=== PATIENT | male | born 1965 | race Caucasian/White ===

== ENCOUNTER 2019-01-08 18:01 | Inpatient (IN) | payer MEDICARE, OTHER ==
[~2019-01-08] VITALS: Ht 170.1 cm; Wt 108.0 kg
--- NOTE | ~2019-01-08 | PR ---
[place], [place] PROGRESS NOTE NAME: FRANSISCA KO UNIT #: [id number] ROOM: 310 DOCTOR: KAY CHÁVEZ CNP BIRTHDATE: [birth year] DOS: CHIEF COMPLAINT: "Oh, I am here because I was a little upset about smoke break, but sober other people." SUMMARY OF THE VISIT: The patient was interviewed as he sats in the dining room. He did engage readily in conversation with me. He reports that he slept well last night. He reports that his appetite is good. The patient reports that his mood has been good. He denies feeling agitated, anxious, or irritable. He does report to me that he was upset about not being able to smoke at the facility where he resides due to a smoke break being canceled; however, he reports he was not the only one that was upset. Staff reports that the patient slept well. He has been taking medications as prescribed. He has exhibited no behaviors. MENTAL STATUS EXAMINATION: The patient is alert and oriented to person, place and time. He did have some memory gap regarding his location. He was pleasant and cooperative with me. No mely or hypomania noted. No delusion or paranoia noted. No psychotic symptoms noted. No auditory or visual hallucinations noted. The patient's mood was calm. Affect was appropriate. PLAN: I will continue the patient's medications as prescribed. The patient seems to be tolerating medications without any side effects. Medication appears to be effective. Continue to encourage the patient to participate in individual and jordan milieu activity. Continue fall and safety precautions. The plan is to return the patient to the least restrictive environment once he is psychiatrically stable. Kay Chávez CNP CM:PNTRANS [phone] KAY CHÁVEZ CNP 01/10/19 1338 interface
--- NOTE | ~2019-01-08 | PR ---
[place], [place] PROGRESS NOTE NAME: FRANSISCA KO UNIT #: [id number] ROOM: 310 DOCTOR: DARREL CAMACHO MD BIRTHDATE: [birth year] DOS: 01/14/2019 CHIEF COMPLAINT: "I don't think I am ready to go home yet." SUMMARY OF THE VISIT: The patient was interviewed as he was eating his breakfast. He engaged readily in conversation. He reports he still does not feel like he is ready to return back to [facility] stating that he still is having some GI issues and still having some residual depression. He does note, however, he is sleeping better and eating better and overall does seem to be strongly trending towards euthymia. Outwardly, I see no side effects from the medicines themselves. MENTAL STATUS: He is alert and oriented to person, place, and approximate to time. Mood does seem to be strongly trending towards euthymia, but depression still persists. There is still some anxiety as well. There is no hypomania or mely. There is no gross psychosis. Short-term memory has some gaps, but otherwise, he is intact. PLAN: I will go ahead and maximize out the dose of Cymbalta bringing it to 60 mg b.i.d. in order to impact positively on depression and anxiety. We will monitor for risks and benefits. We will continue to engage in individual and jordan milieu activities, returning then to the least restrictive environment when psychiatrically stable. DARREL CAMACHO MD CM:PNTRANS [phone] DARREL CAMACHO MD 01/14/19 2345 interface
--- NOTE | ~2019-01-08 | PN ---
[place], [place] PROGRESS NOTE NAME: FRANSISCA KO UNIT #: [id number] ROOM: 310 DOCTOR: DARREL CAMACHO MD BIRTHDATE: [birth year] DATE: 01/15/19 ADDENDUM: Resident note reviewed. Agree with observations, recommendations, and overall treatment plan. DARREL CAMACHO MD CM:PNTRANS [id number] DARREL CAMACHO MD 02/03/19 1331 LUCI HINOJOSA MIS.LLR
--- NOTE | ~2019-01-08 | DS ---
[place], [place] DISCHARGE SUMMARY NAME: FRANSISCA KO UNIT #: [id number] ROOM: 310 DOCTOR: DARREL CAMACHO MD BIRTHDATE: [birth year] DOS: 01/18/2019 CHIEF COMPLAINT: "I slept just fine." HISTORY OF PRESENT ILLNESS: This is a 53-year-old white male who was admitted from [facility]. The patient is referred here because he has been very angry and irritable and is having outbursts at the facility where he has been swearing profanities. He has also been sexually inappropriate with staff. He has been attempting to be very physically aggressive and has been resistive to care. Because of these behaviors, it was felt that an inpatient evaluation and treatment process was warranted. He is admitted now to rule out organic factors and to stabilize on medication. SUMMARY OF HOSPITAL COURSE: The patient was admitted to the unit where his vitamin D was found to be low, so he was given vitamin D 50,000 International Units weekly. He was already on a low dose of Risperdal, but this dose was increased from 0.5 mg to 1 mg twice daily. Additionally, he was started on Cymbalta 30 mg at bedtime and during the course of his stay, the Cymbalta was increased to its maximum dose of 60 mg b.i.d. This seemed to impact positively on him and his mood lifted and he became much more pleasant. There was a significant amount of anxiety and pain noted and the Cymbalta impacted positively on both of these. Anxiety still persisted to the point where hydroxyzine 25 mg 3 times daily was added with positive results. He did note that this made him feel much more calm during the day and less anxious and he was able to engage more readily in group activities and even individual activities without his mind wandering into negative places. He tolerated the medication regimen well and during his latter part of his stay, he did not exhibit any agitation or aggression. There was no mood lability and he was compliant with all aspects of care. The patient was discharged then back to [facility]. MENTAL STATUS AT DISCHARGE: The patient is alert and oriented to person, place and fairly much to time. Mood is euthymic. Affect is appropriate. There is no mely, hypomania or psychosis. Short, intermediate, and long-term memories are intact. DIAGNOSES AT DISCHARGE: Major depression, recurrent; intermittent explosive disorder. PLAN: The patient is returning home. His prescriptions have been e-scribed to [facility]. At the time of discharge, he was medically and psychiatrically stable. [place], [place] DISCHARGE SUMMARY NAME: FRANSISCA KO UNIT #: [id number] ROOM: 310 DOCTOR: DARREL CAMACHO MD BIRTHDATE: [birth year] DARREL CAMACHO MD CM:DISCHARG [id number] DARREL CAMACHO MD 01/18/19 1108 interface
--- NOTE | ~2019-01-08 | WRIGHTHP ---
[place], [place] PATIENT HISTORY AND PHYSICAL EXAM NAME: [id number] UNIT #: [id number] ROOM: 310 DOCTOR: KAY CHÁVEZ CNP BIRTHDATE: [birth year] DOS: 01/09/2019 INITIAL PSYCHIATRIC EVALUATION CHIEF COMPLAINT: "I slept just fine." HISTORY OF PRESENT ILLNESS: This is a 53-year-old white male who is from the [facility] in [place]. The patient was referred due to the fact that he was becoming easily angered and having outbursts at the facility, swearing because a smoke break was canceled and he is also being sexually inappropriate to staff. The staff at the facility reports that the patient's symptoms have been continuing to get progressively worse in order that he was unable to be easily redirected. It was decided to admit that the patient needed to be admitted to the Behavioral Health Unit to rule out further organic factors and to attempt to stabilize the patient on his medication. We will also encourage the patient to engage in individual and jordan milieu activity and return to the least restrictive environment once he is considered psychiatrically stable. PAST MEDICAL HISTORY: Remarkable for degenerative joint disease, hypothyroidism, bronchial asthma, hypercholesterolemia, hypertension, claustrophobia, schizophrenia, psychosis, intellectual disability disorder, obesity and obstructive sleep apnea. SOCIAL HISTORY: The patient has a history of tobacco abuse. He also has a history of alcohol and substance abuse, but no current alcohol or substance use. STRENGTH: The patient's strength, he is ambulatory and does have a support system. WEAKNESSES: The patient has poor coping skills. MENTAL STATUS: The patient is alert and oriented x 3. The patient is very irritable. No overt mely or hypomania noted. No delusions or paranoia noted. No psychotic symptoms noted. No auditory or visual hallucinations noted. The patient's mood seems very depressed. He minimally will verbalize with me providing just one word answers, mainly yes or no. The patient's affect is congruent with mood. Eye contact is poor. The patient closes his eyes while I tried to interview him. DIAGNOSES: Intermittent explosive disorder and major depressive disorder. PLAN: The patient's vitamin D level was low, so we will start the patient on vitamin D 50,000 International Units weekly. We will increase the patient's Risperdal in the morning from 0.5-1 mg. We will add Cymbalta. We will start Cymbalta 30 mg at bedtime. We will monitor the patient and we will monitor for side effects. We will encourage the patient to participate in jordan milieu activity. Implement own safety precautions. Plan is to return the patient to the least restrictive environment once he is considered psychiatrically stable. [place], [place] PATIENT HISTORY AND PHYSICAL EXAM NAME: FRANSISCA KO UNIT #: [id number] ROOM: 310 DOCTOR: KAY CHÁVEZ CNP BIRTHDATE: [birth year] Kay Chávez CNP CM:HISPHYS:PATIENT HISTORY AND PHYSICAL EXAMINATION [phone] KAY CHÁVEZ CNP 01/09/19 1025 interface
--- NOTE | ~2019-01-08 | PR ---
[place], [place] PROGRESS NOTE NAME: FRANSISCA KO UNIT #: [id number] ROOM: 310 DOCTOR: DARREL CAMACHO MD BIRTHDATE: [birth year] DOS: 01/11/2019 CHIEF COMPLAINT: "I think I am feeling okay." SUMMARY OF THE VISIT: The patient was interviewed as he was finishing his breakfast in the dining area. He responded to me appropriately and engaged readily in conversation. He reports that he is here because of smoking issues at [facility]. This has been an ongoing problem for him now for months and he continues to have many temper tantrums when he cannot smoke. He reports that he has been told by [facility] that he will no longer be allowed to smoke, it is unclear to me whether this is reality based in them setting limits just on him or if the facility itself is becoming nonsmoking. In any case, he reports that he is sleeping well, eating well and notes no side effects from the medicines themselves. MENTAL STATUS: He is alert and oriented. Mood does seem to be fairly euthymic. Affect appropriate. There is no mely, hypomania or gross psychosis. Short, intermediate, and long-term memory are roughly intact. PLAN: At the present time, I have discussed the case with nursing home social worker who will reach out to [facility] to get more information and it to determine the least restrictive environment to which the patient could return to when psychiatrically stable. We will engage in individual and jordan milieu activity, returning to the least restrictive environment when stable. DARREL CAMACHO MD CM:PNTRANS [phone] DARREL CAMACHO MD 01/11/19 1118 interface
--- NOTE | ~2019-01-08 | PR ---
[place], [place] PROGRESS NOTE NAME: FRANSISCA KO UNIT #: [id number] ROOM: 310 DOCTOR: DARREL CAMACHO MD BIRTHDATE: [birth year] DOS: 01/13/2019 INTERVAL NOTE CHIEF COMPLAINT: "I am constipated and I didn't sleep well last night." SUMMARY OF THE VISIT: The patient was interviewed as he was finishing his breakfast. He engaged readily in conversation, complaining of poor sleep. Some of this he relates to being constipated and not moving his bowels. He denies that it is causing him pain, but is causing him some discomfort. Otherwise, he has been fairly compliant and has been tolerating his medicines well without apparent side effects. MENTAL STATUS: He is alert and oriented to person, place, very approximate to time. Mood does seem to be strongly trending towards euthymia. Affect is much more appropriate. There is no mely or hypomania noted. Memory for the most part is intact. PLAN: His Trileptal level is barely therapeutic at 11. I will increase his Trileptal dose, then from 300 mg b.i.d. to 300 mg t.i.d. I will also start him on sucralfate one tablet at bedtime to help with some of his GI issues. We will engage in individual and jordan milieu activities, returning to the least restrictive environment when psychiatrically stable. DARREL CAMACHO MD CM:PNTRANS [id number] DRAREL CAMACHO MD 01/14/19 0045 interface
[2019-01-08] MEDS ORDERED: PEPCID20 MG PO (18:07)
[2019-01-08] MEDS ORDERED: ARNUITY ELLIPT50 MCG INH (18:09)
[2019-01-08] MEDS ORDERED: TOPROL XL25 MG PO (18:10)
[2019-01-08] MEDS ORDERED: TRILEPTAL300 MG PO (18:11)
[2019-01-08] MEDS ORDERED: OYSTER SHELL 51 EACH PO (18:12)
[2019-01-08] MEDS ORDERED: KLONOPIN0.5 MG PO (18:13)
[2019-01-08] MEDS ORDERED: CYMBALTA60 MG PO (18:14)
[2019-01-08] MEDS ORDERED: LYRICA200 M1 PO (18:24)
[2019-01-08] MEDS ORDERED: TAZORAC T (18:26)
[2019-01-08] MEDS ORDERED: CLONIDINE HCL0.1 MG PO (18:27)
[2019-01-08] MEDS ORDERED: APRESOLINE25 MG PO (18:29)
[2019-01-08] MEDS ORDERED: TYLENOL WITH C1 EACH PO (18:30)
[2019-01-08] MEDS ORDERED: Ipratropium Brom3 ML INH (18:30)
--- NOTE | 2019-01-08 20:34 | NUR ---
WAIANTONIOFRANSISCA Perez a 53 year old M admitted via ambulance from the OTHER as a voluntary admission. Arrived on unit at 2033. ALLERGIES: NKA. Vital signs are: 97.8-80-20 150/76. The CLIENTS POA VERBALLY AGREED TO : Authorization For The Release of Medical Information, Clothing List, Consent to Voluntary Admission and Hospitalization, Consent and Release Forms/Receipt of Rights, Acknowledgement of Advance Directive Information, Behavioral Health Consent Form, and Informed Consent of Medications. Admitted under the services of Dr. JANICE MCPHERSONDARREL. A search was conducted and hazardous articles were removed. Client was oriented to the unit. RIYA MAE
--- NOTE | 2019-01-08 22:00 | NUR ---
DR. IBARRA ON UNIT TO SEE PT
[2019-01-08 23:24] VITALS: BP 150/76
[2019-01-08 23:27] VITALS: BP 150/76
--- NOTE | 2019-01-09 00:23 | NUR ---
PT HYPERTALKATIVE WITH THIS NURSE ON ADMISSION, ATTEMPTING TO GIVE MUCH INFORMATION POSSIBLE, PLEASANT COOPERATIVE. PT HISTORY VARIED DURING CONVERSATION IN REFERENCE TO SMOKING PATTERN, DRUG USE, ACCIDENTS, AND GENERAL HEALTH HISTORY. PT DENIES SI/HI OR DELUSIONS STATED HE HAS ANGER ISSUES WHICH ARE FROM THE "GENES ON FATHERS SIDE". ENCOURAGE PT TO TALK WITH STAFF AND TO LET STAFF KNOW WHEN HE IS FEELING FRUSTRATED. PT IS RESTING IN BED WITH O2 3 L VIA NC. CONITNUE TO MONITOR FOR 15 MIN CHECKS
--- NOTE | 2019-01-09 05:45 | NUR ---
PT SLEPT 6+ HOURS THIS SHIFT, RESTLESS AT TIMES BUT DID NOT ATTEMPT TO GET OUT OF BED
[2019-01-09 06:46] LABS: BASO % 0.3 % (0.0-1.0); EOS # 0.2 10*3/uL (0.0-0.4); EOS % 1.5 % (1.0-4.0); HEMOGLOBIN 14.7 g/dl (14.0-18.0); LYMPH # 1.8 10*3/uL (1.3-4.4); LYMPH % 17.1 % (27.0-41.0); MEAN CELL VOLUME 99.8 fl (80.0-94.0); MEAN CORPUSCULAR HGB 31.9 pg (27.0-31.0); MEAN PLATELET VOLUME 10.8 fl (9.6-12.3); MONO # 0.8 10*3/uL (0.1-1.0); NEUT # 7.5 10*3/uL (2.3-7.9); NEUT % 72.5 % (47.0-73.0); PLATELET COUNT AUTOMATED 119 10*3/uL (130-400); RED BLOOD COUNT 4.61 10*6/uL (4.50-5.90); RED CELL DISTRI WIDTH 12.6 % (0-14.5); WHITE BLOOD COUNT 10.3 10*3/uL (4.8-10.8)
[2019-01-09 07:03] LABS: ALBUMIN 3.5 gm/dl (3.1-4.5); BUN 18 mg/dl (7-24); CHLORIDE 99 mmol/L (98-107); CHOLESTEROL 244 mg/dL (<200); CREATININE 0.94 mg/dL (0.70-1.30); POTASSIUM 4.4 mmol/L (3.5-5.1); SGOT/AST 27 IU/L (3-35); SGPT/ALT 36 U/L (12-78); SODIUM 139 mmol/L (136-145); TOTAL PROTEIN 8.3 gm/dL (6.4-8.2); TRIGLYCERIDES 200 mg/dl (<150); VLDL CHOLESTEROL 40 mg/dL (6-40)
[2019-01-09 07:12] LABS: ALKALINE PHOSPHATASE 153 U/L (45-117); HDL CHOLESTEROL 47 mg/dl (40-60); LDL CHOLESTEROL 157 mg/dL (9-159)
[2019-01-09 07:50] LABS: VITAMIN D, 25-HYDROXY 28.2 ng/mL (30-100)
[2019-01-09 08:00] VITALS: BP 151/82
--- NOTE | 2019-01-09 08:01 | NUR ---
JEFFRY VILLANUEVA ON UNIT TO ASSESS PT.
--- NOTE | 2019-01-09 08:03 | NUR ---
SHAWN KIRK ON UNIT TO ASSESS PT.
--- NOTE | 2019-01-09 08:15 | NUR ---
PT REFUSED BREAKFAST AFTER MULTIPLE ATTEMPTS.
--- NOTE | 2019-01-09 13:21 | NUR ---
P: DEPRESSED MOOD I: 1:1 PROVIDED FOR THERAPEUTIC COMMUNICATION. ENCOURAGED MEDICATION COMPLIANCE. ENCOURAGED PT TO INCREASE SOCIALIZATION WITH STAFF AND PEERS. ENCOURAGED PT TO INCREASE TIME OUT OF ROOM. R: PT SITTING IN DINNINGROOM AT THIS TIME IN SANDIP CHAIR. NO SOCIALIZATION NOTED WITH STAFF OR PEERS. MEDICATION COMPLIANT WITHOUT DIFFICULTY. P: CONTINUE TO OFFER 1:1 FOR THERAPEUTIC COMMUNICATION, ENCOURAGE MEDICATION COMPLIANCE, ENCOURAGE INCREASED SOCIALIZATION WITH STAFF AND PEERS, ENCOURAGED PT TO INCREASE TIME OUT OF ROOM. SCABS REMAIN INTACT. INCONTINENCE CARE PROVIDED. PT INCONTINENT OF BLADDER. SHOWERED TODAY. PT 2 ASSIST WITH TRANSFERS. PT REFUSED BREAKFAST, CONSUMED 75% OF LUNCH. PT REQUIRES ASSISTANCE WITH TRAY SETUP. NO HALLUCINATIONS OR DELUSIONS NOTED. SEIZURE PRECAUTIONS MAINTAINED. Q15 MINUTE SAFETY CHECKS MAINTAINED.
[2019-01-09 14:35] LABS: BILIRUBIN NEGATIVE (NEGATIVE); BLOOD NEGATIVE (NEGATIVE); CLARITY CLEAR (CLEAR); COLOR YELLOW (YELLOW); GLUCOSE NEGATIVE (NEGATIVE); KETONE NEGATIVE (NEGATIVE); LEUKO ESTERASE NEGATIVE (NEGATIVE); NITRITE NEGATIVE (NEGATIVE); SPECIFIC GRAVITY 1.015 (1.005-1.030); UROBILINOGEN 0.2 E.U./dl (0.2-1.0)
[2019-01-09 14:41] LABS: BACTERIA 2+; EPITHELIAL CELLS 0-2; RBC 0-2 rbc/hpf (0-2)
--- NOTE | 2019-01-09 16:38 | NUR ---
DR SHAWN KIRK UPDATED ON UA RESULTS. NNO AT THIS TIME.
[2019-01-09 18:44] VITALS: BP 140/74
--- NOTE | 2019-01-09 21:36 | NUR ---
24 HR chart check completed.
--- NOTE | 2019-01-09 22:47 | NUR ---
PATIENT RESTING IN BED. REMAINS ISOLATIVE. STATED TO THIS RN " I WAS A BAD BOY. I FLIRTED WITH THE NURSES AND THAT'S WHY I AM HERE. FOR YOU TO TEACH ME HOW TO BEHAVE." NO SEXUALLY INAPPROPRIATE BEHAIOR NOTED. STATED HE IS NO LONGER FEELING DEPRESSED. WAS VERY TALKATIVE AND MED COMPLIANT. ENCOURAGED 1:1.
--- NOTE | 2019-01-10 05:18 | NUR ---
PATIENT SLEPT MORE THAN 8 HOURS LAST NIGHT.
[2019-01-10 07:36] VITALS: BP 113/61
--- NOTE | 2019-01-10 10:28 | NUR ---
DR. SANCHEZ ON UNIT TO ASSESS PT, UPDATE PROVIDED.
--- NOTE | 2019-01-10 17:42 | NUR ---
P: DEPRESSED MOOD I: 1:1 PROVIDED FOR THERAPEUTIC COMMUNICATION. ENCOURAGED MEDICATION COMPLIANCE. ENCOURAGED PT TO INCREASE SOCIALIZATION WITH STAFF AND PEERS. ENCOURAGED PT TO INCREASE TIME OUT OF ROOM. R: PT SITTING IN DINNINGROOM AT THIS TIME IN SANDIP CHAIR. NO SOCIALIZATION NOTED WITH STAFF OR PEERS. MEDICATION COMPLIANT WITHOUT DIFFICULTY. P: CONTINUE TO OFFER 1:1 FOR THERAPEUTIC COMMUNICATION, ENCOURAGE MEDICATION COMPLIANCE, ENCOURAGE INCREASED SOCIALIZATION WITH STAFF AND PEERS, ENCOURAGED PT TO INCREASE TIME OUT OF ROOM. SCABS REMAIN INTACT. INCONTINENCE CARE PROVIDED. PT INCONTINENT OF BLADDER. PT 2 ASSIST WITH TRANSFERS. PT REQUIRES ASSISTANCE WITH TRAY SETUP. NO HALLUCINATIONS OR DELUSIONS NOTED. SEIZURE PRECAUTIONS MAINTAINED. Q15 MINUTE SAFETY CHECKS MAINTAINED.
[2019-01-10 20:00] VITALS: BP 106/66
--- NOTE | 2019-01-10 21:33 | NUR ---
24 HR chart check completed.
--- NOTE | 2019-01-10 23:18 | NUR ---
P-DEPRESSED MOOD I-ENCOURAGE VENTILATION OF FEELINGS, ASSESS ORIENTATION, ASSIST WITH NEEDS, ADMINISTER MEDICATIONS, MONITOR SLEEP. R-PT SAT IN THE DINING ROOM QUIETLY THIS EVENING KEEPING TO HIMSELF. HE IS ALERT & ORIENTED TO PERSON, PLACE, TIME & STATED THAT HE GOT UPSET ABOUT A SMOKE BREAK AT THE [facility]. SLOW TO RESPOND. STATED, "IM DOING A LITTLE BETTER. I SHOULDN'T HAVE DONE THAT." MOOD IS DEPRESSED. NO ANGRY OUTBURSTS, NO SEXUALLY INAPPROPRIATE BEHAVIORS. NO DELUSIONS OR HALLUCINATIONS. UTILIZED O2 @ 3L/MIN. HAS BEEN CONTINENT OF URINE & USES BEDSIDE URINAL. ABLE TO MAKE NEEDS KNOWN. REQUIRES 2 STAFF ASSIST. COMPLIANT WITH HS MEDICATIONS. 1999 BP WAS 106/[address] BURNS NOTIFIED & ORDERS WERE RECEIVED TO HOLD CATAPRES & HYDRALAZINE TONIGHT & GO AHEAD & GIVE TOPROL. THIS WAS EXPLAINED TO PT. P-CONTINUE TO MONITOR & PROVIDE PHYSICAL ASSISTANCE & EMOTIONAL SUPPORT.
--- NOTE | 2019-01-11 04:56 | NUR ---
PT HAS SLEPT PAST 3140
--- NOTE | 2019-01-11 07:39 | NUR ---
PHYSICAL THERAPY Nursing screen received. PT orders also received. Thank you. Yazmin Brumfield,PT
[2019-01-11 07:46] VITALS: BP 112/70
--- NOTE | 2019-01-11 07:52 | NUR ---
PT AWAKE, ALERT, RESPS EASY AND EVEN ON 3L VIA NC. EATING BREAKFAST IN DINING ROOM WITH PEERS AT THIS TIME. FEEDING SELF. NO DISTRESS NOTED. ON UNIT TO SEE PT AT THIS TIME, UPDATE GIVEN.
--- NOTE | 2019-01-11 08:00 | NUR ---
Treatment Plan meeting with Dr. Larose, RN, AT, SW and Cash Processing Specialist. Plan for discharge at the end of the week. Beginning of next week. Pt. is a current resident of [facility]. Will reach out to facility today to discharge Planning.
--- NOTE | 2019-01-11 08:41 | NUR ---
Nursing screen received and Occupational Therapy referral received. Thank you. Karina Blue OTR/l
--- NOTE | 2019-01-11 09:15 | NUR ---
CAMILA GRADER OPERATOR ON UNIT TO SEE PT AT THIS TIME, MADE AWARE BP MANUAL 110/64 HR 65. PT DUE TO RECIEVE HYDRALAZINE, METOPROLOL AND CATAPRESS THIS AM. CAMILA STATES SHE WILL REVIEW MEDS AND CALL WITH FURTHER INSTRUCTIONS REGARDING ADMINISTRATION OF BLOOD PRESSURE MEDICATIONS.
--- NOTE | 2019-01-11 11:08 | NUR ---
Spoke with Jessica at [facility] in regards to pt smoking there. Per Jessica, pt does have smoking privileges there that are at scheduled times. Jessica stated that pt's brother often tries to get pt to quit smoking. At those times, pt begins to have difficult behaviors. Jessica confirmed that when pt returns, pt's smoking privileges will resume.
--- NOTE | 2019-01-11 11:25 | NUR ---
P- MILD MEMORY GAPS. SLOW PROCESSING/SLOW SPEECH AT TIMES. I- ORIENTATION, MOOD AND BEHAVIOR ASSESSED. ASSESSED PT FOR SI/HI, INTENT OR PLAN. ASSESSED PT FOR S/S HALLUCINATIONS, PARANOIA AND/OR DELUSIONS. MEDICATIONS ADMINISTERED PER PHYSICIAN'S ORDERS. ASSISTANCE WITH ADL CARE PROVIDED NEEDED. ENCOURAGED PT TO ATTEND AND PARTICIPATE IN [facility] GROUPS AND ACTIVITIES. R- PT IS ALERT AND ORIENTED TO PERSON, TIME AND SITUATION. NOT PLACE. PT UNABLE TO STATE WHERE HE IS, PT STATES "I FORGET WHERE THIS IS". EASILY REORIENTED. MILD ST MEMORY GAPS NOTED. RESPS EASY AND EVEN ON 3L VIA NC. MOOD APPEARS STABLE, AFFECT IS APPROPRIATE. SPEECH IS SLOW, COHERENT, SLOW PROCESSING NOTED, HOWEVER, PT IS ABLE TO MAKE NEEDS KNOWN WITHOUT DIFFICULTY. PT DENIES SI/HI, INTENT OR PLAN. PT DENIES HALLUCINATIONS, NO RESPONSE TO INTERNAL STIMULI NOTED. NO PARANOIA OR DELUSIONS NOTED. PT STATES HE IS HERE BECAUSE "I GOT MAD ABOUT MY SMOKE BREAKS". NO AGGRESSION OR AGITATION NOTED. PT IS PLEASANT AND COOPERATIVE. MEDICATION COMPLIANT WITHOUT DIFFICULTY. NO DISTRESS NOTED. P- PLAN TO CONTINUE CURRENT TREATMENT, CONTINUE TO MONITOR MOOD AND BEHAVIORS, PROVIDE APPROPRIATE REORIENTATION, REDIRECTION AND 1:1 NEEDED. CONTINUE TO ENCOURAGE MEDICATION COMPLIANCE WELL GROUP ATTENDANCE AND PARTICIPATION.
--- NOTE | 2019-01-11 11:41 | NUR ---
Spoke with Leonela at [facility]. 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
--- NOTE | 2019-01-11 11:42 | NUR ---
AM ASSESSMENT AND 1:1 PT WAS ASSESSED AND GOALS SET. PT WILL ATTEND AND PARTICIPATE IN GROUP THERAPY
--- NOTE | 2019-01-11 11:51 | NUR ---
Clinical Updates faxed to [facility].
[2019-01-11 12:27] VITALS: BP 102/60
--- NOTE | 2019-01-11 14:28 | NUR ---
CAMILA NESS MADE AWARE 1300 DOSE OF APRESOLINE HELD D/T MANUAL BP 102/60
--- NOTE | 2019-01-11 15:36 | NUR ---
PM GROUP/LEISURE INTERESTS PT ATTENDED GROUP AND ATTEMPTED TO COLOR WITH COLORED PENCILS. PT HAD DIFFICULTY GRIPPING PENCIL AND KEPT DROPPING IT. PT SEEMED UNSURE OF WHAT TO DO. PT EXHBITED NO AGGRESSIVE OR ASSUALTIVE BEHAVIORS DURING GROUP AND WAS PLEASANT AND POLITE.
--- NOTE | 2019-01-11 15:53 | NUR ---
UPDATED CLINICALS FAXED TO [facility].
--- NOTE | 2019-01-11 18:35 | NUR ---
SHIFT CHART CHECK COMPLETED.
[2019-01-11 19:55] VITALS: BP 109/62
--- NOTE | 2019-01-12 00:16 | NUR ---
P-DEPRESSION, MEMORY GAPS I-ENCOURAGE VENTILATION OF FEELINGS, ASSESS ORIENTATION, ASSIST WITH NEEDS, ADMINISTER MEDICATIONS, MONITOR SLEEP. R-PT SAT IN THE DINING ROOM QUIETLY THIS EVENING KEEPING TO HIMSELF. HE IS ALERT & ORIENTED TO PERSON, PLACE, TIME & STATED THAT HE GOT UPSET ABOUT A SMOKE BREAK AT THE LONG TERM. SLOW TO RESPOND. MILDLY DEPRESSED. NO ANGRY OUTBURSTS, NO SEXUALLY INAPPROPRIATE BEHAVIORS. NO DELUSIONS OR HALLUCINATIONS. UTILIZED O2 @ 3L/MIN. HAS BEEN CONTINENT OF URINE & USES BEDSIDE URINAL. ABLE TO MAKE NEEDS KNOWN. REQUIRES 2 STAFF ASSIST. COMPLIANT WITH HS MEDICATIONS. 1999 BP WAS 109/62 PULSE 66. CATAPRES, HYDRALAZINE & TOPROL HELD A NURSING MEASURE. P-CONTINUE TO MONITOR & PROVIDE PHYSICAL ASSISTANCE & EMOTIONAL SUPPORT.
--- NOTE | 2019-01-12 01:05 | NUR ---
24 HR chart check completed.
--- NOTE | 2019-01-12 06:03 | NUR ---
PT HAS SLEPT PAST 2214
[2019-01-12 07:23] VITALS: BP 106/64; BP 110/68
--- NOTE | 2019-01-12 08:00 | NUR ---
Treatment Plan meeting with Dr. Larose, RN, AT, SW and Insights Manager. Plan for discharge at the end of the week. Pt. will return to [facility].
--- NOTE | 2019-01-12 08:00 | NUR ---
PT AWAKE, ALERT AND VERBAL. PLEASANT. RESPS EASY AND EVEN ON ROOM AIR, POX 94% ROOM AIR. NO DISTRESS NOTED. ON UNIT TO SEE PT AT THIS TIME, UPDATE PROVIDED.
--- NOTE | 2019-01-12 10:44 | NUR ---
P- MILD MEMORY GAPS. SLOW SPEECH/SLOW PROCESSING AT TIMES. MOOD APPEARS STABLE. I- ORIENTATION, MOOD AND BEHAVIOR ASSESSED. ASSESSED PT FOR SI/HI, INTENT OR PLAN. ASSESSED PT FOR S/S HALLUCINATIONS, PARANOIA AND/OR DELUSIONS. MEDICATIONS ADMINISTERED PER PHYSICIAN'S ORDERS. ASSISTANCE WITH ADL CARE PROVIDED NEEDED. ENCOURAGED PT TO ATTEND AND PARTICIPATE IN LEE MILIEU GROUPS AND ACTIVITIES. R- PT IS ALERT AND ORIENTED TO PERSON, TIME AND SITUATION. NOT ORIENTED TO PLACE. ACCEPTS REALITY REORIENTATION EASILY. MILD ST MEMORY GAPS NOTED. RESPS EASY AND EVEN ON 3L VIA NC. MOOD APPEARS TO BE STABLE WITH APPROPRIATE AFFECT. SPEECH IS SLOW, COHERENT, ABLE TO MAKE NEEDS KNOWN WITHOUT DIFFICULTY. SLOW PROCESSING NOTED AT TIMES. PT DENIES SI/HI, INTENT OR PLAN. PT DENIES HALLUCINATIONS, NO RESPONSE TO INTERNAL STIMULI NOTED. NO PARANOIA OR DELUSIONS NOTED. PT IS MEDICATION COMPLIANT WITHOUT DIFFICULTY. NO DISTRESS NOTED. COMPLIANT WITH ALL AREAS OF CARE. NO AGGRESSIVE BEHAVIORS NOTED. P- PLAN TO CONTINUE CURRENT TREATMENT, CONTINUE TO MONITOR MOOD AND BEHAVIORS, PROVIDE APPROPRIATE REORIENTATION, REDIRECTION AND 1:1 NEEDED. CONTINUE TO ENCOURAGE MEDICATION COMPLIANCE WELL GROUP ATTENDANCE AND PARTICIPATION.
--- NOTE | 2019-01-12 11:23 | NUR ---
CAMILA BIOMEDICAL ELECTRONICS TECHNICIAN ON UNIT TO SEE PT AT THIS TIME, MADE AWARE BP MEDS HELD THIS AM D/T MANUAL BP 104/64. ALSO MADE AWARE REQUESTS HOSPITALISTS ASSESS EYES D/T DRAINAGE NOTED THIS AM.
--- NOTE | 2019-01-12 11:39 | NUR ---
AM GROUP THERAPY PT ATTENDED GROUP AND PARTICIPATED BY PLAYING CARDS AND CHECKERS WITH A PEER. PT EXHIBITED NO AGGRESSION OR AGITATION NOR ANY SEXUAL INAPPROPRIATENESS.
--- NOTE | 2019-01-12 14:00 | NUR ---
PHYSICAL THERAPY Patient evaluated on 3, full evaluation to follow. D/C PT after evaluation, no specific skills/needs. Patient is long temc care and rosa maria prn at that facility. Continue to recommend rosa maria at this time for patient and staff safety. Recommend daily ROM with daily nursing care, prn. PAtient is moderate complexity via chart review, tests and evaluation: 49714. Thank you for this referral. Yazmin Brumfield,PT
--- NOTE | 2019-01-12 15:04 | NUR ---
Occupational Therapy evaluation completed on 3 with full eval to follow. Precautions include rosa maria lift, fall risk, left hemplegia, w/c dependent, assisted w/ ADLs, high complexity level 98509 via chart review, testing and eval. Recommend no further OT at this time and return to LTC. Thank you for this referral. Karina Blue OTR/l
--- NOTE | 2019-01-12 15:34 | NUR ---
PM GROUP/MANICURES AND MUSIC PT WAS LATE TO GROUP BUT DID EXPRESS THE DESIRE TO HAVE A MANICURE AND I WAS ABLE TO START FILING HIS NAILS. PT EXHIBITED NO AGITATION OR AGGRESSION DURING THE TIME THAT HE WAS IN GROUP
--- NOTE | 2019-01-12 15:57 | NUR ---
ORDER FOR TOBREX EYE DROPS CLARIFIED WITH CAMILA NESS. DROPS ARE TO BE GIVEN IN BOTH EYES EVERY 4 HOURS. CALL PLACED TO PHARMACIST BREANNA AND UPDATED.
--- NOTE | 2019-01-12 17:26 | NUR ---
SHIFT CHART CHECK COMPLETED.
--- NOTE | 2019-01-12 19:44 | NUR ---
24 HR chart check completed.
[2019-01-12 20:03] VITALS: BP 106/70
--- NOTE | 2019-01-12 22:52 | NUR ---
P-MEMORY GAPS, CONSTIPATION I-ENCOURAGE VENTILATION OF FEELINGS, ASSESS ORIENTATION, ASSIST WITH NEEDS, ADMINISTER MEDICATIONS, MEDICATED WITH PRN MOM @ 2114 FOR C/O CONSTIPATION, MONITOR SLEEP. R-PT LYING IN BED IN HIS ROOM QUIETLY THIS EVENING KEEPING TO HIMSELF. HE IS ALERT & ORIENTED TO X4. SLOW TO RESPOND WITH MEMORY GAPS. MOOD IS STABLE. UTILIZED O2 @ 3L/MIN. HAS BEEN CONTINENT OF URINE & USES BEDSIDE URINAL. ABLE TO MAKE NEEDS KNOWN. DID C/O CONSTIPATION. MEDICATED WITH MOM. REQUIRES 2 STAFF ASSIST. COMPLIANT WITH HS MEDICATIONS. 1999 BP WAS 106/70 PULSE 60. CATAPRES & TOPROL HELD A NURSING MEASURE. P-CONTINUE TO MONITOR & PROVIDE PHYSICAL ASSISTANCE & EMOTIONAL SUPPORT. MONITOR EFFECTIVENESS OF MOM. =
--- NOTE | 2019-01-13 05:21 | NUR ---
PT HAS SLEPT FROM [id number]
[2019-01-13 07:53] VITALS: BP 108/72; BP 150/79
--- NOTE | 2019-01-13 08:00 | NUR ---
Treatment Plan meeting with Dr. Larose, RN, AT, SW and Propeller Layout Worker. Plan for discharge at the end of the week, possible Friday when Stable.
--- NOTE | 2019-01-13 08:45 | NUR ---
CAMILA THREAD ROLLER ON UNIT TO SEE PT AT THIS TIME. AWARE PT C/O CONSTIPATION.
--- NOTE | 2019-01-13 09:32 | NUR ---
Clinical Updates faxed to Psychiatric.
--- NOTE | 2019-01-13 11:49 | NUR ---
AM GROUP/MUSIC AND GAMES PT WAS PRESENT FOR GROUP AND CHOSE NOT TO PARTICIPATE BUT TO RELAX AND LISTEN TO MUSIC. PT DID NOT GET MUCH SLEEP LAST NIGHT PER NURSING REPORT. PT EXHIBITED NO AGITATION OR AGGRESSION DESPITE PEER YELLING AND BANGING.
--- NOTE | 2019-01-13 14:53 | NUR ---
LAST COVERED DAY FOR PT IS 01/12. NOHELIA SAYS PT STABLE TO RETURN TO [facility]. JAMEL MODEL ENGINE MECHANIC ON [facility] INFORMED.
--- NOTE | 2019-01-13 15:44 | NUR ---
PM GROUP/[employer] GAMES PT WAS PRESENT FOR AFTERNOON GROUP THERAPY BUT WAS SLEEPING IN SANDIP CHAIR. PT GOT LITTLE SLEEP LAST NIGHT PER NURSES REPORT.
--- NOTE | 2019-01-13 17:04 | NUR ---
PT CONTINUES TO C/O CONSTIPATION. +BSX4. CALL PLACED TO [facility]ILA [facility] MADE AWARE OF PT C/O AND THAT HAD ORDERED COLACE 200MG TO BE GIVEN TONIGHT AT . CAMILA [facility] STATES TO GIVE COLACE NOW. WITNESSED BY 2ND RN SHEELA.[email or web address].
--- NOTE | 2019-01-13 18:45 | NUR ---
P- NAPPING INTERMITTENTLY T/O SHIFT. EASILY AROUSABLE VIA VERBAL/TACTILE STIMULI. MOOD APPEARS DEPRESSED WITH FLAT AFFECT. PLEASANT AND COOPERATIVE. I- ORIENTATION, MOOD AND BEHAVIOR ASSESSED. ASSESSED PT FOR SI/HI, INTENT OR PLAN. ASSESSED PT FOR S/S HALLUCINATIONS, PARANOIA AND/OR DELUSIONS. MEDICATIONS ADMINISTERED PER PHYSICIAN'S ORDERS. ASSISTANCE WITH ADL CARE PROVIDED NEEDED. ENCOURAGED PT TO ATTEND AND PARTICIPATE IN [facility]EE [facility] GROUPS AND ACTIVITIES. R- PT IS ALERT AND ORIENTED TO PERSON, TIME AND SITUATION. NOT ORIENTED TO PLACE. ACCEPTS REALITY REORIENTATION EASILY. MILD ST MEMORY GAPS NOTED. RESPS EASY AND EVEN ON 3L VIA NC. MOOD APPEARS DEPRESSED WITH FLAT AFFECT. PT STATES "I'M JUST BLAH, JUST LIVING. NOT REALLY DEPRESSED THOUGH". SPEECH IS SLOW, COHERENT, ABLE TO MAKE NEEDS KNOWN WITHOUT DIFFICULTY. SLOW PROCESSING NOTED AT TIMES. PT DENIES SI/HI, INTENT OR PLAN. PT DENIES HALLUCINATIONS, NO RESPONSE TO INTERNAL STIMULI NOTED. NO PARANOIA OR DELUSIONS NOTED. PT IS MEDICATION COMPLIANT WITHOUT DIFFICULTY. NO DISTRESS NOTED. COMPLIANT WITH ALL AREAS OF CARE. NO AGGRESSIVE BEHAVIORS NOTED. P- PLAN TO CONTINUE CURRENT TREATMENT, CONTINUE TO MONITOR MOOD AND BEHAVIORS, PROVIDE APPROPRIATE REORIENTATION, REDIRECTION AND 1:1 NEEDED. CONTINUE TO ENCOURAGE MEDICATION COMPLIANCE WELL GROUP ATTENDANCE AND PARTICIPATION.
[2019-01-13 19:42] VITALS: BP 119/72
--- NOTE | 2019-01-14 00:03 | NUR ---
24 HR chart check completed.
--- NOTE | 2019-01-14 00:16 | NUR ---
P-FATIGUE, CONSTIPATION I: MILK OF MAGNESIA GIVEN WITH PRUNE JUICE, BOWEL SOUNDS ASSESSED ACTIVE X 4 QUADS, PT SLEEPING IN BED THIS SHIFT, DIFFICULT TO AROUNSE, PT AWAKEN BY THIS NURSE FOR MEDICATIONS AND SPOKE BRIEFLY ABOUT HIS OUT LOOK ON RETURNING TO PREVIOUS FACILITY. ALSO SPOKE WITH PT ABOUT ACCEPTANCE OF CHANGE IN HIS LIVING STYLE BEING IN A SNF UNIT. R: PT STATED HE WILL TRY TO ADJUST TO THE THOUGHT OF NOT RETURNING TO LIVING ON HIS OWN AND THAT IS WHAT HE THINKS UPSET HIM IN THE 1ST PLACE. P: CONTINUE TO MONITOR MOODS AND BEHAVIORS, ENCROUAGE MEDICATION COMPLIANCE, GROUP SESSIONS AND MILIEU ACTIVITIES. PT DISPLAYS NO SI/HI OR DELUSIONS CONTINUES TO BE MAX ASSIST FOR HANDS ON CARE, PT IS UNABLE TO CARE FOR HIMSELF WILL ASSIST MINIMALLY WITH HYGEINE CARE.
--- NOTE | 2019-01-14 06:42 | NUR ---
PT SLEPT 6 HOURS
[2019-01-14 07:47] VITALS: BP 112/68
--- NOTE | 2019-01-14 08:00 | NUR ---
Treatment Plan meeting with Dr. Larose, RN, AT and Final Inspector Motorcyles. Plan for discharge Friday/Friday. Pt. continues to have symptoms of depression and Dr. Larose feels that patient is Not Stable to discharge at this time.
--- NOTE | 2019-01-14 08:57 | NUR ---
Notified Tasia Norwood RNair conditioning equipment mechanic that Dr. Larose will discharge Patient Friday or Friday, Pt. is still depressed and Dr. Larose is adjusting medications.
--- NOTE | 2019-01-14 11:00 | NUR ---
ADDITIONAL CLINICALS FAXED TO [facility] WITH MED CHANGES. WILL FOLLOW.
--- NOTE | 2019-01-14 11:44 | NUR ---
AM GROUP/EXERCISE AND BRAIN GAMES PT ATTENDED AND PARTICIPATED IN BOTH THE EXERCISE AND THE GAMES TO THE BEST OF HIS ABILITY. PT WAS JOKING AND PLEASANT AND EXHIBITED NO AGITATION OR AGGRESSION DURING GROUP.
--- NOTE | 2019-01-14 15:35 | NUR ---
PM GROUP/LEISURE INTERESTS PT WAS PRESENT FOR GROUP SLEEPING MOST OF THE TIME RECLINED IN SANDIP CHAIR. PT AWOKE AND WANTED TO HELP WITH A JIGSAW PUZZLE. PT ENJOYED LISTENING TO THE MUSIC AND SOCIALIZING WITH PEERS. PT EXHIBITED NO AGITATION, AGGRESSION OR SEXUAL INAPPROPRIATENESS.
[2019-01-14 20:00] VITALS: BP 114/62
--- NOTE | 2019-01-15 04:51 | NUR ---
24 HR chart check completed.
[2019-01-15 07:30] VITALS: BP 112/65
[2019-01-15 07:51] LABS: BUN 29 mg/dl (7-24); CHLORIDE 99 mmol/L (98-107); CREATININE 1.07 mg/dL (0.70-1.30); POTASSIUM 4.5 mmol/L (3.5-5.1); SODIUM 141 mmol/L (136-145)
--- NOTE | 2019-01-15 07:58 | NUR ---
KWABENA FROM LAB CALLED AND ADVISED THIS NURSE OF CRITICAL CO2 LEVEL OF 42. DR. MARQUEZ ON UNIT AT THIS TIME AND UPDATED.
--- NOTE | 2019-01-15 08:00 | NUR ---
Treatment Plan meeting with Dr. Larose, RN, AT, and Remote Recruiter. Plan for discharge Friday. Pt. will return to [facility].
[2019-01-15 08:27] LABS: BASO # 0.1 10*3/uL (0.0-0.1); BASO % 0.6 % (0.0-1.0); EOS # 0.3 10*3/uL (0.0-0.4); EOS % 2.9 % (1.0-4.0); HEMATOCRIT 45.7 % (42.0-52.0); HEMOGLOBIN 13.9 g/dl (14.0-18.0); LYMPH # 3.2 10*3/uL (1.3-4.4); LYMPH % 34.6 % (27.0-41.0); MEAN CELL VOLUME 102.9 fl (80.0-94.0); MEAN CORPUSCULAR HGB 31.3 pg (27.0-31.0); MEAN CORPUSCULAR HGB CONC 30.4 g/dl (33.0-37.0); MEAN PLATELET VOLUME 10.5 fl (9.6-12.3); MONO # 0.9 10*3/uL (0.1-1.0); MONO % 9.9 % (3.0-9.0); NEUT # 4.8 10*3/uL (2.3-7.9); NEUT % 51.2 % (47.0-73.0); PLATELET COUNT AUTOMATED 185 10*3/uL (130-400); RED BLOOD COUNT 4.44 10*6/uL (4.50-5.90); RED CELL DISTRI WIDTH 12.5 % (0-14.5); WHITE BLOOD COUNT 9.3 10*3/uL (4.8-10.8)
--- NOTE | 2019-01-15 10:54 | NUR ---
ADDITIONAL CLINICALS FAXED TO [facility].
--- NOTE | 2019-01-15 12:44 | NUR ---
AM GROUP/MUSIC AND LIGHT THERAPY PT DID NOT ATTEND MORNING GROUP. PT DID NOT GET OUT OF BED THIS MORNING
--- NOTE | 2019-01-15 13:40 | NUR ---
PT ALERT TO PERSON WITH CONFUSION NOTED. MEMORY DEFICITS NOTED. ISOLATIVE TO ROOM AND WITHDRAWN TO SELF. PT REFUSED AFTERNOON CALCIUM, TRILEPTAL, AND VISTARIL. Q15 MINUTE SAFETY CHECKS MAINTAINED. SEIZURE PRECAUTIONS MAINTAINED. NO SWEARING OUTBURSTS NOTED. OXYGEN INTACT VIA N/C RUNNING AT 3LPM. SCABS REMAIN INTACT. INCONTINENCE CARE PROVIDED. PT INCONTINENT OF BLADDER. PT 2 ASSIST WITH TRANSFERS. PT REQUIRES ASSISTANCE WITH TRAY SETUP. NO HALLUCINATIONS OR DELUSIONS NOTED. P: DEPRESSED MOOD I: 1:1 PROVIDED FOR THERAPEUTIC COMMUNICATION. ENCOURAGED MEDICATION COMPLIANCE. ENCOURAGED PT TO INCREASE SOCIALIZATION WITH STAFF AND PEERS. ENCOURAGED PT TO INCREASE TIME OUT OF ROOM. R: PT SITTING IN DINNINGROOM AT THIS TIME IN SANDIP CHAIR. NO SOCIALIZATION NOTED WITH STAFF OR PEERS. MEDICATION COMPLIANT WITHOUT DIFFICULTY. P: CONTINUE TO OFFER 1:1 FOR THERAPEUTIC COMMUNICATION, ENCOURAGE MEDICATION COMPLIANCE, ENCOURAGE INCREASED SOCIALIZATION WITH STAFF AND PEERS, ENCOURAGED PT TO INCREASE TIME OUT OF ROOM.
--- NOTE | 2019-01-15 15:44 | NUR ---
PM GROUP/BINGO PT WAS PRESENT FOR AFTERNOON GROUP THERAPY BUT WAS SOUND ASLEEP RECLINED IN A SANDIP CHAIR. PT WAS NOTED TO BE SNORING LOUDLY
--- NOTE | 2019-01-15 16:58 | NUR ---
PT HAS HAD INCREASED DROWSINESS. PT SLEEPING DURING MEDICATION TIME. WILL ATTEMPT AT A LATER TIME OR TOMORROW.
[2019-01-15 20:28] VITALS: BP 108/64
--- NOTE | 2019-01-15 20:48 | NUR ---
CALLED AND NOTIFIED OF PATIENTS MANUAL BP OF 106/62, PULSE 68 RADIAL. ALSO REVIEWED PATIENTS HS BP MEDICATIONS DUE AT HS AND PREVIOUS DOCUMENTED BP'S. STATED TO HOLD HS DOSE OF CATAPRES 0.1MG AND TOPROL XL 25MG. NO OTHER ORDERS RECIEVED.
[2019-01-15 20:52] VITALS: BP 106/62
--- NOTE | 2019-01-16 00:20 | NUR ---
ON UNIT, UPDATED ON PATIENT STILL NEEDING X1 DOSE OF MONUROL SINCE HE WAS SLEEPING DURING AFTERNOON DOSE. STATED TO PUT IN AN ORDER FOR MONUROL X1. NO OTHER ORDERS RECIEVED.
--- NOTE | 2019-01-16 03:32 | NUR ---
NO ADVERSE BEHAVIORS NOTED THIS SHIFT. PT ALERT AND ORIENTED X3 WITH CONFUSION. MOOD STABLE. PT CALM AND COOPERATIVE, INTERACTIVE WITH STAFF WHEN PROMPTED. DURING 1:1 PATIENT STATED HE WAS DOING GOOD TODAY JUST READY FOR BED. PT DENIES SI/HI AND HALLUCINATIONS, NO NOTED RESPONDING TO INTERNAL STIMULI. NO PARANOIA/DELUSIONS OBSERVED. PT MEDICATION COMPLIANT WITHOUT DIFFICULTY AFTER REVIEW. NO PHYSICAL COMPLAINTS VOICED. PT ABLE TO MAKE NEEDS KNOWN, COMPLIANT WITH HOC WITHOUT DIFFICULTY. PT CURRENTLY LAYING DOWN WITH EYES CLOSED, RESPIRATIONS EASY AND REGULAR ON 3L NC CONTINUOUS. NO SIGNS OR SYMPTOMS OF DISTRESS NOTED. PLAN IS TO CONTINUE TO MONITOR MOOD AND BEHAVIORS, REDIRECT AND REORIENT NEEDED. PROVIDE 1:1 FOR PATIENT TO VOICE FEELINGS WITH EMOTIONAL SUPPORT NEEDED. ENCOURAGE MEDICATION COMPLAINCE AND EDUCATE. MAINTAIN Q 15 MIN CHECKS.
--- NOTE | 2019-01-16 04:17 | NUR ---
24 HOUR CHART CHECK COMPLETED.
--- NOTE | 2019-01-16 05:59 | NUR ---
PATIENT OBSERVED ON Q 15 MIN CHECKS TO HAVE SLEPT APPROX 7 HOURS WITH NO AWAKENINGS OR SIGNS AND SYMPTOMS OF DISTRESS NOTED.
[2019-01-16 07:19] LABS: BASO % 0.4 % (0.0-1.0); EOS # 0.2 10*3/uL (0.0-0.4); EOS % 1.9 % (1.0-4.0); HEMOGLOBIN 14.1 g/dl (14.0-18.0); LYMPH % 27.8 % (27.0-41.0); MEAN CELL VOLUME 100.9 fl (80.0-94.0); MEAN CORPUSCULAR HGB 31.6 pg (27.0-31.0); MEAN CORPUSCULAR HGB CONC 31.3 g/dl (33.0-37.0); MEAN PLATELET VOLUME 10.4 fl (9.6-12.3); MONO # 0.8 10*3/uL (0.1-1.0); MONO % 7.1 % (3.0-9.0); NEUT # 6.6 10*3/uL (2.3-7.9); NEUT % 62.2 % (47.0-73.0); PLATELET COUNT AUTOMATED 182 10*3/uL (130-400); RED BLOOD COUNT 4.46 10*6/uL (4.50-5.90); RED CELL DISTRI WIDTH 12.4 % (0-14.5); WHITE BLOOD COUNT 10.6 10*3/uL (4.8-10.8)
[2019-01-16 07:44] LABS: BUN 32 mg/dl (7-24); CHLORIDE 100 mmol/L (98-107); CREATININE 0.81 mg/dL (0.70-1.30); POTASSIUM 4.1 mmol/L (3.5-5.1); SODIUM 142 mmol/L (136-145)
[2019-01-16 08:00] VITALS: BP 112/65
--- NOTE | 2019-01-16 08:56 | NUR ---
Patient resting quietly with no c/o discomfort. Respirations easy and regular. Vital signs stable. No overt distress. ADAM SANTAMARIA
--- NOTE | 2019-01-16 11:33 | NUR ---
AM GROUP/EXERCISES/COPING SKILLS DAX PT ATTENDED AND PARTICIPATED ON AND OFF DUE TO FALLING ASLEEP AND WAKING AGAIN. PT DID NOT BECOME ASSAULTIVE OR SEXUALLY INAPPROPRIATE AT THIS TIME. PT WILL CONTINUE TO ATTEND AND PARTICIPATE IN GROUP TO BEST OF ABILITY.
--- NOTE | 2019-01-16 14:34 | NUR ---
P - PT PRESENTS WITH DEPRESSED MOOD, FLAT AFFECT. PT WITHDRAWN TO SELF. ABLE TO EXPRESS WANTS AND NEEDS TO STAFF NEEDED. I- ORIENTATION LEVEL, MOOD, AND AFFECT ASSESSED. ASSESSED PT FOR SI, INTENT OR PLAN. ASSESSED PT FOR S/S HALLUCINATIONS OR DELUSIONS. MEDICATIONS ADMINISTERED PER PHYSICIAN'S ORDERS. ASSISTANCE WITH ADL CARE PROVIDED NEEDED. ENCOURAGED PT TO ATTEND AND PARTICIPATE IN LEE MILIEU GROUPS AND ACTIVITIES. R-PT ORIENTED TO PERSON ONLY. STATES "I'M FINE". PT AFFECT IS FLAT, PLEASANT AND COOPERATIVE WITH ASSESSMENT. PT MAINTAINS EYE CONTACT, VERBAL RESPONSES APPROPRIATE TO CONTENT. PT MEDICATION COMPLIANT WITHOUT DIFFICULTY. ACTIVE PARTICIPANT IN GROUP. P-CONTINUE TO MONITOR PT'S MOOD, ENCOURAGE PARTICIPATION IN GROUP THERAPY/ACTIVITY FOR SOCIALIZATION AND SUPPORT. ENCOURAGE CONTINUED MEDICATION COMPLIANCE. Q15 MIN MONITORING PER POLICY
--- NOTE | 2019-01-16 14:39 | NUR ---
Shift chart check completed.
--- NOTE | 2019-01-16 15:57 | NUR ---
PM GROUP/GAMES PT SLEPT UNTIL THE END OF GROUP AND ENCOURAGED TO JOIN GAME OF TRIVIAL PURSUIT. PT CHOSE NOT TO PLAY BUT TO OBSERVE. PT DID NOT BECOME ASSAULTIVE OR SEXUALLY INAPPROPRIATE AT THIS TIME. PT WILL CONTINUE TO BE ENCOURAGED TO ATTEND AND PARTICIPATE IN FUTURE GROUP SESSIONS.
[2019-01-16 20:11] VITALS: BP 137/75
--- NOTE | 2019-01-17 00:26 | NUR ---
NO ADVERSE BEHAVIORS NOTED THIS SHIFT. PT ALERT AND ORIENTED X3 WITH CONFUSION. MOOD STABLE. PT CALM AND COOPERATIVE, INTERACTIVE WITH STAFF WHEN PROMPTED, ISOLATIVE TO ROOM AND BED SINCE BEGINNING OF SHIFT, REFUSED TO GET UP FOR SNACK STATING "IM JUST TIRED TONIGHT, RATHER STAY IN BED". PT DENIES SI/HI AND HALLUCINATIONS, NO NOTED RESPONDING TO INTERNAL STIMULI. NO PARANOIA/DELUSIONS OBSERVED. PT MEDICATION COMPLIANT WITHOUT DIFFICULTY AFTER REVIEW. NO PHYSICAL COMPLAINTS VOICED. PT ABLE TO MAKE NEEDS KNOWN, COMPLIANT WITH HOC WITHOUT DIFFICULTY. PT CURRENTLY LAYING DOWN WITH EYES CLOSED, RESPIRATIONS EASY AND REGULAR ON 3L NC CONTINUOUS. NO SIGNS OR SYMPTOMS OF DISTRESS NOTED. PLAN IS TO CONTINUE TO MONITOR MOOD AND BEHAVIORS, REDIRECT AND REORIENT NEEDED. PROVIDE 1:1 FOR PATIENT TO VOICE FEELINGS WITH EMOTIONAL SUPPORT NEEDED. ENCOURAGE MEDICATION COMPLAINCE AND EDUCATE. MAINTAIN Q 15 MIN CHECKS.
--- NOTE | 2019-01-17 02:40 | NUR ---
24 HOUR CHART CHECK COMPLETED.
--- NOTE | 2019-01-17 05:33 | NUR ---
PATIENT OBSERVED ON Q 15 MIN CHECKS TO HAVE SLEPT APPROX 9 HOURS WITH NO AWAKENINGS OR SIGNS AND SYMPTOMS OF DISTRESS NOTED.
[2019-01-17 07:16] VITALS: BP 128/72
--- NOTE | 2019-01-17 13:54 | NUR ---
P: DEPRESSED MOOD I: 1:1 PROVIDED FOR THERAPEUTIC COMMUNICATION. ENCOURAGED MEDICATION COMPLIANCE. ENCOURAGED PT TO INCREASE SOCIALIZATION WITH STAFF AND PEERS. ENCOURAGED PT TO INCREASE TIME OUT OF ROOM. R: PT SITTING IN DINNINGROOM AT THIS TIME IN SANDIP CHAIR. NO SOCIALIZATION NOTED WITH STAFF OR PEERS. MEDICATION COMPLIANT WITHOUT DIFFICULTY. P: CONTINUE TO OFFER 1:1 FOR THERAPEUTIC COMMUNICATION, ENCOURAGE MEDICATION COMPLIANCE, ENCOURAGE INCREASED SOCIALIZATION WITH STAFF AND PEERS, ENCOURAGED PT TO INCREASE TIME OUT OF ROOM.
--- NOTE | 2019-01-17 13:56 | NUR ---
PT ALERT TO PERSON WITH CONFUSION NOTED. MEMORY DEFICITS NOTED. ISOLATIVE TO ROOM AND WITHDRAWN TO SELF. Q15 MINUTE SAFETY CHECKS MAINTAINED. SEIZURE PRECAUTIONS MAINTAINED. NO SWEARING OUTBURSTS NOTED. OXYGEN INTACT VIA N/C RUNNING AT 3LPM. SCABS REMAIN INTACT. INCONTINENCE CARE PROVIDED. PT INCONTINENT OF BLADDER. PT 2 ASSIST WITH TRANSFERS. PT REQUIRES ASSISTANCE WITH TRAY SETUP. NO HALLUCINATIONS OR DELUSIONS NOTED. SEE [facility] FLOWSHEET FOR SPECIFIC MONITORING.
[2019-01-17 18:59] VITALS: BP 142/80
--- NOTE | 2019-01-17 23:51 | NUR ---
24 HR chart check completed.
--- NOTE | 2019-01-18 00:28 | NUR ---
P-IRRITABLE, YELLING OUT. PATIENT ALERT WITH CONFUSIONS. PATIENT WITH SHORT TERM AND SENIOR LIVING MEMORY DEFICITS. PATIENT WITH NO HALLUCINATIONS OR DELUSIONS. PATIENT WITH NO SUICIDAL OR HOMICIDAL IDEATIONS. PATIENT YELLING AT OTHER PATIENTS AND NURSING STAFF. NO RESPIRATORY DISTRESS. I-REDIRECTION WITH 1:1 THERAPEUTIC INTERVENTIONS AND PRESENT REALITY. EDUCATE AND ENCOURAGE MEDICATION COMPLIANCE R-PATIENT ISOLATIVE IN DINING AREA WITH PEERS. PATIENT AGITATED AND DISRUPTIVE AT TIMES IN DINING AREA WHEN OTHERS TRYING TO COMMUNICATE WITH PATIENT. PATIENT STATING TO ANOTHER PATIENT "I DON'T REALLY LIKE WOMEN TAKING CARE OF ME". PATIENT CONTINUES ON 3L O2 VIA NASAL CANNULA CONTINOUS WITHOUT DIFFICULTY. PATIENT MEDICATION COMPLIANT P-CONTINUE TO ENCOURAGE MEDICATION COMPLIANCE, CONTINUE TO PRESENT REALITY, ENCOURAGE GROUP THERAPY WHILE AWAKE
--- NOTE | 2019-01-18 05:50 | NUR ---
PATIENT SLEPT 7 HOURS OF UNINTERRUPTED SLEEP THROUGHOUT SHIFT. Q 15 MINUTE CHECKS MAINTAINED
[2019-01-18 07:46] VITALS: BP 143/75
--- NOTE | 2019-01-18 08:45 | NUR ---
DR. LUNA NOTIFIED OF PATIENT BEING DISCHARGE, TO INFORM DR. CALZADA OF DISCHARGE.
--- NOTE | 2019-01-18 09:03 | NUR ---
Spoke with Jessica at [facility]. Notified of discharge today with return to facility.
[2019-01-18] MEDS ORDERED: RISPERIDONE1 MG PO ×2 (09:04)
[2019-01-18] MEDS ORDERED: HYDROXYZINE PAM25 M1 PO (09:04)
[2019-01-18] MEDS ORDERED: DULOXETINE HCL60 MG PO (09:04)
[2019-01-18] MEDS ORDERED: OXCARBAZEPINE150 MG PO (09:04)
--- NOTE | 2019-01-18 10:20 | NUR ---
DR. CALZADA ON UNIT TO ASSESS PATIENT.
--- NOTE | 2019-01-18 11:35 | NUR ---
AM GROUP/EXERCISE AND WRITING PT ATTENDED GROUP AND PARTICIPATED TO THE BEST OF HIS ABILITY IN THE ACTIVITIES. PT EXHIBITED NO ASSAULTIVE OR SEXUALLY INAPPROPRIATE BEHAVIORS DURING GROUP. PT IS SET TO BE DISCHARGED FROM THE UNIT TODAY
--- NOTE | 2019-01-18 12:40 | NUR ---
Treatment Plan meeting with Dr. Larose, RN, AT, and Credit Negotiator. Plan for discharge today. Pt. to return to [facility].
--- NOTE | 2019-01-18 13:40 | NUR ---
PER FAX FROM [facility]. YOANA APPROVED [facility] 01/16. LAST COVERED DAY 01/16. MORE CLINICALS FAXED FOR WEEKEND ALONG WITH DISCHARGE SUMMARY TO [facility]. JAMEL CLAY CATERING ASSOCIATE FOR [facility] INFORMED.
--- NOTE | 2019-01-18 14:32 | NUR ---
Discharge Paperwork Faxed to [facility].
--- NOTE | 2019-01-18 14:52 | NUR ---
Patient is discharging today to [facility]. Follow-up will be with Dr Larose, visiting psychiatrist. While at [facility], pt's mood and behaviors improved. Pt did not display anger or aggression. Pt was pleasant with staff and peers.
--- NOTE | 2019-01-18 15:18 | NUR ---
NURSE TO NURSE REPORT GIVEN TO PARMINDER AT [facility].
--- NOTE | 2019-01-18 15:38 | NUR ---
PM GROUP/MUSIC AND TRIVIA PT DID NOT ATTEND AFTERNOON GROUP THERAPY. PT WAS READYING TO BE DISCHARGED FROM THE UNIT
--- NOTE | 2019-01-18 17:43 | NUR ---
PATIENT IS ALERT TO PERSON WITH CONFUSION; ABLE TO VOICE NEEDS. LONG/SHORT TERM MEMORY DEFICITS. MOOD IS STABLE, NO OUTBURST OBSERVED. DENIES ANY HALLUCINATIONS/DELUSIONS, HI/IS OR PAIN. INTERACTIVE WITH STAFF AND PARTICIPATED IN MORNING GROUP SESSION. MEDICATION COMPLAINT WITH EDUCATION PROVIDED. Q 15 MINUTE SAFETY CHECKS MAINTAINED. 2 PERSON ASSIST WITH ACTIVITIES OF DAILY LIVING, CONTINENT OF BOWEL AND BLADDER. SET UP FOR MEALS, INTAKES ARE GOOD WITH ADEQUATE FLUIDS. 2 PERSON ASSIST FOR TRANSFERS WITH MECHANICAL LIFT. NO SEXUAL INAPPROPRIATE BEHAVIORS NOTED. CONTINUE TO MONITOR MOOD, AGGRESSION AND INAPPROPRIATE BEHAVIOR; PROVIDE ONE ON ONE AND REDIRECTION NEEDED.
[2019-01-18 20:00] VITALS: BP 142/72
--- NOTE | 2019-01-18 21:37 | NUR ---
P-IRRITABLE. PATIENT ALERT WITH CONFUSIONS. 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 PATIENT WITH NO HALLUCINATIONS OR DELUSIONS. PATIENT WITH NO SUICIDAL OR HOMICIDAL IDEATIONS. PATIENT YELLING AT OTHER PATIENTS AND NURSING STAFF. NO RESPIRATORY DISTRESS. I-REDIRECTION WITH 1:1 THERAPEUTIC INTERVENTIONS AND PRESENT REALITY. EDUCATE AND ENCOURAGE MEDICATION COMPLIANCE R-PATIENT ISOLATIVE IN ROOM. PATIENT AGITATED AND DISRUPTIVE AT TIMES IN ROOM. PATIENT ATTEMPTING TO PLAY IN FECES AND WITH ATTEMPTS TO REDIRECT AT HS. PATIENT CONTINUES ON 3L O2 VIA NASAL CANNULA CONTINOUS WITHOUT DIFFICULTY. PATIENT MEDICATION COMPLIANT. P-CONTINUE TO ENCOURAGE MEDICATION COMPLIANCE, CONTINUE TO PRESENT REALITY, ENCOURAGE GROUP THERAPY WHILE AWAKE
--- NOTE | 2019-01-18 22:12 | NUR ---
PATIENT OFF THE UNIT WITH [facility] ATTENDANTS X 2 VIA STRETCHER AND SECURITY X 1. PATIENT LEFT WITH BELONGING. [facility] SIGNED DISCHARGE LOCK BOX AND RECEIVED A COPY. PATIENT STABLE AT TIME OF DISCHARGE. [facility] CALLED AND UPDATED THAT PATIENT HAD BOWEL MOVEMENT THIS SHIFT AND RECEIVED HS MEDICATIONS. MEDICATIONS RETURNED TO PHARMACY. NURSING SHEET METAL WELDER UPDATED ABOUT PATIENT DISCHARGE
== END 2019-01-18 22:12 | DRG 883 ==
LOC: 3N 18:01
PROVIDERS: Internal Medicine; ADMIT Psychiatry & Neurology Psychiatry
DX: F63.81 Intermittent explosive disorder (principal); N30.00 Acute cystitis without hematuria; F33.9 Major depressive disorder, recurrent, unspecified; I10 Essential (primary) hypertension; J44.9 Chronic obstructive pulmonary disease, unspecified; R73.03 Prediabetes; K21.9 Gastro-esophageal reflux disease without esophagitis; M19.90 Unspecified osteoarthritis, unspecified site; E78.00 Pure hypercholesterolemia, unspecified; E03.9 Hypothyroidism, unspecified; J45.909 Unspecified asthma, uncomplicated; G47.33 Obstructive sleep apnea (adult) (pediatric); E66.9 Obesity, unspecified; B95.2 Enterococcus as the cause of diseases classified elsewhere; F41.9 Anxiety disorder, unspecified; I49.5 Sick sinus syndrome; Z96.641 Presence of right artificial hip joint; G40.909 Epilepsy, unspecified, not intractable, without status epilepticus; F17.210 Nicotine dependence, cigarettes, uncomplicated; E78.5 Hyperlipidemia, unspecified; F25.9 Schizoaffective disorder, unspecified; Z71.6 Tobacco abuse counseling; Z87.2 Personal history of diseases of the skin and subcutaneous tissue; Z99.81 Dependence on supplemental oxygen; Z90.49 Acquired absence of other specified parts of digestive tract; Z79.899 Other long term (current) drug therapy; Z68.37 Body mass index [BMI] 37.0-37.9, adult